=== PATIENT | male | born 1940 | race Caucasian/White ===

== ENCOUNTER 2017-01-19 10:57 | Inpatient (IN) | payer MEDICARE, SELFPAY ==
[2017-01-19] VITALS (15 sets, daily range): BP systolic 71–115; BP diastolic 43–70; PULSE 76–99; RESP 18–22; TEMP 36.4–36.6; O2SAT 89–95; BMI 35.7; BMI 33.7
--- NOTE | 2017-01-19 12:06 | EKG12_ITS ---
Test Reason : Blood Pressure : / mmHG Vent. Rate : 077 BPM Atrial Rate : 077 BPM P-R Int : 174 ms QRS Dur : 118 ms QT Int : 402 ms P-R-T Axes : 060 -37 029 degrees QTc Int : 454 ms Normal sinus rhythm Left axis deviation Low voltage QRS Abnormal ECG Confirmed by GILLIAN MART, SAVITA ([id number]), medical transcription editor KIRAN KUMARI ([id number]) on 01/22/2017 2:13:02 PM Referred By: ANEL Confirmed By:SAVITA FRENCH MD
--- NOTE | 2017-01-19 12:06 | RAD_ITS ---
STUDY: X-RAY CHEST REASON FOR EXAM: Male, 76 years old. Hypoxia. TECHNIQUE: Single AP portable view of the chest. COMPARISON: None. FINDINGS: Increased markings are seen at the lung bases worse on the right side. Follow-up is recommended. There is no demonstrated pleural abnormality. There is moderate cardiac enlargement. Normal mediastinum and kimber. Normal visualized pulmonary arteries. There is atherosclerotic calcification of the aortic arch with tortuosity. Normal visualized thoracic spine. There is degenerative osteoarthritis of the bilateral shoulders. There is no demonstrated abnormality of the visualized soft tissue structures of the upper abdomen. RAD/Chest 1 View (Portable) IMPRESSION: Increased markings are seen at both lung bases worse on the left side. Follow-up is recommended. Electronically Signed: Nabor Bolden MD at 12:39 EDT Tel [phone], Service support ,
[2017-01-19 13:15] LABS: ALB/GLOB Ratio 0.6 RATIO (0.9-2.4); AST(SGOT) 27 U/L (15-37); Alanine Aminotransfer ALT/SGPT 31 U/L (12-78); Albumin, Serum 2.8 g/dL (3.4-5.0); Alkaline Phosphatase 56 U/L (45-117); Anion Gap 12 (5-15); BUN 70 mg/dL (7-18); BUN/Creat Ratio 27.5 RATIO (10-20); Calcium,Total 10.3 mg/dL (8.5-10.1); Chloride 96 mmol/L (98-107); Creatinine, Serum 2.55 mg/dL (0.70-1.30); EST Glomerular Filtration Rate 26 mL/min (>60); Est Glom Filt Rate - Afr Amer 32 mL/min (>60); Estimated Creatinine Clearance 23.47 ml/min; Globulin 4.5 g/dL (2.3-3.5); Glucose 86 mg/dL (70-110); Potassium 4.4 mmol/L (3.5-5.1); Protein, Total 7.3 g/dL (6.4-8.2); Sodium Level 135 mmol/L (136-145)
[2017-01-19 13:20] LABS: BNP,B-Type NATRIURETIC PEPTIDE 92.3 pg/mL (0-100)
[2017-01-19 13:21] LABS: Lactic Acid 1.7 mmol/L (0.4-2.0)
[2017-01-19 13:24] LABS: Mucous, Urine 0 SEEN /hpf (<or=2+); Red Blood Cells-Urine 0 SEEN /hpf (0-5); White Blood Cells 0 SEEN /hpf (0-5)
[2017-01-19 13:26] LABS: Color, Urine Yellow (Yellow); Glucose, Dipstick Normal (Normal); Ketone-Dipstick 5 mg/dl (Negative); Leukocyte Esterase-Dipstick Negative /ul (Negative); Nitrite-Dipstick Negative (Negative); Occult Blood-Urine 10 /ul (Negative); Protein-Dipstick 30 mg/dl (Negative); Specific Gravity, Urine 1.025 (1.002-1.030); Urine Clarity Cloudy (Clear); Urine Urobilinogen Normal (Normal)
[2017-01-19 13:36] LABS: Urine Bilirubin Dipstick 1 mg/dL (Negative)
[2017-01-19 13:40] LABS: Amorphous Sediment 1+; Bacteria 1+ /hpf (None Seen); Hyaline Cast 5-10 SEEN /lpf (0-5); Squamous Epithelial Cells - UA 0-5 SEEN /hpf (0-5)
--- NOTE | 2017-01-19 14:21 | ED.VISSUMM ---
- ER Visit Summary Date of Service: 01/19/17 Chief Complaint: [Weakness and poor p.o. intake] History of Present Illness: The patient is a 76 M who presents to the emergency department with increasing confusion and generalized weakness. The patient has had generalized weakness and increasing difficulty ambulating and poor p.o. intake for a year but that this has been worse particularly in the last month. He has developed bedsores which he has been receiving wound care for. He also recently completed antibiotics for an upper respiratory infection like illness. He has had increasing shortness of breath as well per the family. He has become increasingly dyspneic even just with sitting up. He has been on home oxygen for about 2 weeks. No vomiting or diarrhea. No fevers. He denies chest pain. He denies headache. He had outpatient blood work today to recheck worsening renal function. The spoke to the patient's primary care physician and they felt that the patient may need placement to a nursing facility so he was brought here. Physical Examination: Initial blood pressure 79/52 temperature 97.7 heart rate 85 respiratory rate 22 pulse ox 94% on 2 L Tacky mucous membranes Heart regular rate and rhythm Patient has scattered rales and rhonchi but is not in respiratory distress able to speak in full sentences no retractions Abdomen soft nontender Stage II decubitus sacral ulcer No peripheral edema Test Results: EKG shows sinus rhythm at a rate of 77. Chest X ray shows increased markings at the bases but no definite infiltrate or effusion. Laboratory studies notable for BUN of 70 with a creatinine of 2.55. Urinalysis was normal. Troponin BNP and lactic all normal. CBC pending at the time of this dictation. Emergency Department Course and Treatment: Patient underwent workup for generalized weakness. He does appear to have dehydration. I do not have old labs to compare to but family has noted that his renal function has been worsening and with a BUN as high as 70 I suspect this is acute kidney injury. He was treated with IV fluids. At the time of this dictation a CBC was needed to be redrawn. However the patient does not have fever or tachycardia or signs of infectious process. I do feel he will need admitted for hydration monitoring of his renal function and eventually placement to a nursing facility. Treatment Plan: [] Disposition: Admit Impression: Acute kidney injury Generalized weakness Decubitus ulcer ED Disposition - Plan for ED Patient: Chief Complaint: General Illness Referrals: Kain Vargas MD [Primary Care Provider] -
[2017-01-19] MEDS: 0.9% Normal Saline 1,000 ML 999 ML IV ×2 (14:29→16:40)
--- NOTE | 2017-01-19 14:30 | NURSING ---
DR ALTHEA CASAS DR
[2017-01-19 14:32] LABS: Differential Indicated MANUAL DIFF; Hematocrit 33.6 % (40-54); Mean Corp Hgb Conc 32.7 g/gl (32-36); Mean Corpuscular Hgb 33.6 pg (27.0-32.0); Mean Corpuscular Volume 102.8 fL (80-94); POSITIVE COUNT YES; POSITIVE DIFFERENTIAL YES; POSITIVE MORPHOLOGY YES; Platelet Count 218 K/mm3 (150-450); RBC Distribution Width CV 17.9 % (11.6-14.6); RBC Distribution Width SD 63.9 fl (35.1-43.9); Red Blood Count 3.27 M/mm3 (4.6-6.2); White Blood Count 10.2 K/mm3 (4.4-11.0)
--- NOTE | 2017-01-19 14:41 | HP.PCM_ITS ---
Problem List (1) DENZEL (acute kidney injury) Status: Acute (2) Hypoxia Status: Acute (3) FTT (failure to thrive) in adult Status: Acute (4) Supplemental oxygen dependent Status: Chronic Comment: 2L (5) Anxiety Status: Chronic (6) Depression Status: Chronic Qualifiers: Depression Type: unspecified Qualified Code(s): F32.9 - Major depressive disorder, single episode, unspecified (7) Diabetes type 2, controlled Status: Chronic Qualifiers: Diabetes mellitus complication status: with unspecified complications Diabetes mellitus [facility] insulin use: without [facility] use Qualified Code( s): E11.8 - Type 2 diabetes mellitus with unspecified complications (8) History of pulmonary embolus (PE) Status: Chronic (9) Hyperlipidemia Status: Chronic Qualifiers: Hyperlipidemia type: unspecified Qualified Code(s): E78.5 - Hyperlipidemia , unspecified (10) Restless leg syndrome Status: Chronic (11) Rheumatoid arthritis Status: Chronic Qualifiers: Rheumatoid arthritis location: unspecified site (12) B12 deficiency Status: Chronic (13) Interstitial pulmonary fibrosis Status: Chronic (14) Chronic anemia Status: Chronic (15) RACHEL (obstructive sleep apnea) Status: Chronic (16) Hypertension Status: Chronic Qualifiers: Hypertension type: renovascular hypertension Qualified Code(s): I15.0 - Renovascular hypertension (17) Arrhythmia Status: Chronic Qualifiers: Arrhythmia type: unspecified cardiac arrhythmia Qualified Code(s): I49.9 - Cardiac arrhythmia, unspecified Comment: unsure of type, takes diltiazem History of Present Illness Date of Admission: 01/19/17 Chief Complaint: increased SOB, confusion The patient is a 76 year old M with past medical history as above who presents to the emergency room with complaints of progressive debility/weakness, increased shortness of breath, and confusion. The patient has had generalized weakness and increased difficulties with ambulation for over a year, however within the last couple of weeks has gotten significantly worse. He currently goes to the wound center under the care of Dr. Gonzalez for bilateral, nonhealing decubitus ulcers on his buttocks. His reports he has been noncompliant with some of the recommendations, such as nutritional supplementation and turning in bed to prevent worsening of his wounds. He also was placed on 2 L of oxygen supplementation 2 weeks ago by his burning supervisor, Dr. Terell Cruz, and had several tests done including a d-dimer, CTA of the chest, chest x-ray, stress test, and possible echocardiogram within the last month or 2. He was placed on ciprofloxacin and completed a 10 day course yesterday for a bronchiectasis exacerbation. He does have a history of PE/DVT approximately 2 years ago. According to OV note of Dr. Cruz that the brought in, patient had echocardiogram in 2016 that showed good heart function. He has had shortness of breath for over a year as well, however this has gotten much worse. He denies any chest discomfort, palpitations, vomiting, fevers/shaking chills, or headaches. He does note that his appetite has been very poor for over a year and that every time he tries to eat something, he gets nauseated. No emesis. He reportedly had a CT of the abdomen pelvis for weight loss and poor appetite as well. All of his testing results are currently unavailable but have been requested. He had outpatient lab work done today to check on his renal function after being taken off of metformin, however the patient's and PCP discussed possible placement to group home facility and he recommended he present to the emergency room for further evaluation. Workup in the ER was remarkable for hemoglobin of 11, Hct 33.6, normal WBC at 10.2, elevated MCV/MCH. Chemistry remarkable for sodium of 135, BUN 70, creatinine 2.55, lactate normal at 1.7, normal liver function, albumin 2.8, globulin 4.5. Urinalysis positive for protein, ketones, occult blood, and bilirubin. No leukocytes. BNP 92.3. Troponin negative ?1. Chest x-ray demonstrated increased markings at both lung bases worse on the left side. Moderate cardiac enlargement. No demonstrated pleural abnormality. The patient also has rheumatoid arthritis and sees a information systems analyst at [facility], he is currently on methotrexate and prednisone 20 mg daily. His take up operator is Dr. Rivera, notes he sees him for arrhythmia. Past Medical History Past Medical History (Chronic Problems): Chronic Problems Arrhythmia (Chronic) unsure of type, takes diltiazem B12 deficiency (Chronic) Chronic anemia (Chronic) Hypertension (Chronic) Interstitial pulmonary fibrosis (Chronic) RACHEL (obstructive sleep apnea) (Chronic) Anxiety (Chronic) COPD (chronic obstructive pulmonary disease) (Chronic) Depression (Chronic) Diabetes type 2, controlled (Chronic) History of pulmonary embolus (PE) (Chronic) Hyperlipidemia (Chronic) Restless leg syndrome (Chronic) Rheumatoid arthritis (Chronic) Stage II pressure ulcer of left buttock (Chronic) Stage II pressure ulcer of right buttock (Chronic) Supplemental oxygen dependent (Chronic) 2L Allergies aspirin Adverse Reaction (Verified 01/19/17 11:02) Swelling ibuprofen Adverse Reaction (Verified 01/19/17 11:02) Swelling NSAIDS (Non-Steroidal Anti-Inflamma Adverse Reaction (Verified 01/19/17 11:02) Unknown Home Medications: Ambulatory Orders Medication Instructions Recorded Atenolol [Tenormin] 25 mg PO DAILY 12/05/16 BusPIRone [Buspar] 15 mg PO BID 12/05/16 Calcium Carb/Magnesium Hydrox 1 tab PO DAILY 12/05/16 [Rolaids Chewable Tablet] Citalopram [Celexa] 20 mg PO DAILY 12/05/16 Diltiazem HCl [Diltiazem 24Hr ER] 120 mg PO DAILY 12/05/16 Docusate Sodium [Colace] 100 mg PO BID 12/05/16 Fluticasone 0.05% [Flonase Nasal 1 spray IH DAILY 12/05/16 [place]] Furosemide [Lasix] 40 mg PO QODAY 12/05/16 Methotrexate 17.5 mg PO PERALTA 12/05/16 Mometasone/Formoterol [Dulera 200 2 puff IH BID 12/05/16 Mcg/5 Mcg Inhaler] Pramipexole Di-HCl [Mirapex] 0.25 mg PO BID 12/05/16 PredniSONE 20 mg PO DAILY 12/05/16 Rivaroxaban [Xarelto] 20 mg PO DAILY 12/05/16 Simvastatin [Zocor] 40 mg PO QHS 12/05/16 Spironolactone [Aldactone] 50 mg PO DAILY 12/05/16 TraMADol [Ultram (G)] 50 mg PO BID PRN 12/05/16 Vit B12/Levomefolate/Vit B6/B2 1 each PO DAILY 12/05/16 [l-Methyl-Mc Tablet] Folic Acid 1 mg PO DAILY@0800 01/19/17 Furosemide [Lasix] 80 mg PO MOWEFR 01/19/17 Niacin 500 mg PO DAILY 01/19/17 Surgical History: - - none noted Psychiatric History: Depression Lives: Spouse/ Significant Other Smoking Status: Former smoker Tobacco Use: Non-smoker Alcohol: None Drugs: None - *Family History Maternal History Items: Diabetes, Heart Disease Paternal History Items: Diabetes, Heart Disease Review of Systems Constitutional: Reports: Anorexia, Weakness, Fatigue. Denies: Chills, Fever, Night Sweats, Malaise, Weight Change Eyes: Denies: Vision Change HEENT: Reports: Hard of Hearing. Denies: Difficulty Swallowing, Dysphasia, Head Aches, Nasal bleeding, Nasal Congestion, Sinus Congestion, Sore Throat Cardiovascular: Reports: Edema - chronic LLE edema from trauma, Light Headedness , Orthopnea, Paroxysmal Noc. Dyspnea. Denies: Chest Pain, Chest Tightness, Palpitations, Syncope Respiratory: Reports: Shortness of breath at rest, Shortness of breath upon exertion. Denies: Cough, Hemoptysis, Pleuritic Pain, Sputum production, Wheezing Gastrointestinal: Reports: Nausea - every time I try to eat. Denies: Abdominal Pain, Constipation, Diarrhea, Dyspepsia, Vomiting Genitourinary: Denies: Dysuria, Frequency, Hematuria, Nocturia Musculoskeletal: Reports: - - Chronic low back pain Skin: Reports: Wounds - Bilateral decubitus ulcers to buttocks, - - skin tear LFA/elbow area Neurological: Reports: Confusion - last night/this a.m.. Denies: Balance problems, Change in Speech, Focal weakness, Numbness, Tingling, Tremor, Seizures Psychiatric: Reports: Depression. Denies: Anxiety, Suicidal Ideations Endocrine: Denies: Change in Body Habitus, Polydipsia, Polyuria Hematologic/ Lymphatic: Reports: Easy Bruising, Easy Bleeding, Hx of blood clot - on Xarelto for PE/DVT. Denies: Adenopathy, Anemia VTE Information - Inpt Only VTE Present on Admission: Yes VTE Mechan Device Prophylaxis: Knee High DINH Hose VTE Pharm Prophylaxis ordered?: No Reason prophylaxis not ordered:: Treatment Not Indicated - on Xarelto for DVT/PE Patient Problems: Active and Suspected Problems DENZEL (acute kidney injury) (Acute) FTT (failure to thrive) in adult (Acute) Hypoxia (Acute) Subjective: Patient lying in bed, no specific complaints. Reports he does get short of breath if he is lying flat. Denies any chest pain or palpitations. No dizziness, headache, pain. Objective: Clinical Impression(s) from Imaging Studies Chest X-Ray 01/19/17 12:06 IMPRESSION: Increased markings are seen at both lung bases worse on the left side. Follow-up is recommended. Electronically Signed: Nabor Bolden MD at 12:39 EDT Tel [phone], Service support , - Physical Exam General: Alert, Oriented x3, Cooperative, No apparent distress HEENT: Atraumatic, PERRLA, Normocephalic Oral: No Gingival or Mucosal Lesions/ Ulcerations, Dry Mucosa Neck: Supple, No JVD, No Nodes, Trachea Midline, Thyroid Normal Size and Texture , Carotid Bruits, Bilateral - mild Lungs: Diminished, Rales - Throughout, Rhonchi - Scattered throughout, Wheezes - Expiratory wheezes throughout, - - No accessory muscle use, no conversational dyspnea, no tachypnea. Cardiovascular: Normal S1, Normal S2, PMI Normal, Irregular Rate, No rub noted, No Gallop, - - distant heart sounds Abdomen: Soft, Non Tender, No Hepato-splenomegaly, Hyperactive Bowel Sounds, Obese Extremities: No clubbing, No cyanosis, Capillary Refill Less than 3 Seconds, Diminished Peripheral Pulses, Edema - LLE 1+, - - deformed hands/digits- h/o RA Skin: Ulcer/ Wound - bilat stg II decubitus ulcers to buttocks Musculoskeletal: No Tenderness to Palpation of Joints or Extremities Lymphatic: No Cervical, Supraclavicular, or Inguinal Adenopathy Neurological: Cranial nerves II-XII grossly intact, Neuro grossly intact, Motor Exam 5/5 strength throughout Psych/Mental Status: Alert and oriented to time, place, person, mood and affect Vital Signs Temp Pulse Resp BP Pulse Ox 97.7 F 99 20 93/55 92 01/19/17 10:58 01/19/17 12:06 01/19/17 12:06 01/19/17 14:25 01/19/17 14:25 Oxygen Flow Rate 3 Oxygen Delivery Method Nasal Cannula Weight: 106.594 kg Body Mass Index (BMI) 35.7 Laboratory Tests Past 24 Hrs 01/19/17 01/19/17 01/19/17 12:46 12:46 12:46 WBC RBC Hgb Hct MCV MCH MCHC RDW RDW Differential Plt Count MPV Neut % (Auto) Absolute Neuts (auto) Total Counted Sodium 135 L Potassium 4.4 Chloride 96 L Carbon Dioxide 27.0 Anion Gap 12 BUN 70 H Creatinine 2.55 H Estim Creat Clear Calc 23.47 Est GFR (MDRD) Af Amer 32 L Est GFR (MDRD) Non-Af 26 L BUN/Creatinine Ratio 27.5 H Glucose 86 Lactic Acid 1.7 Calcium 10.3 H Total Bilirubin 0.70 AST 27 ALT 31 Alkaline Phosphatase 56 Troponin I < 0.02 B-Natriuretic Peptide 92.3 Total Protein 7.3 Albumin 2.8 L Globulin 4.5 H Albumin/Globulin Ratio 0.6 L Urine Color Urine Clarity Urine pH Ur Specific [place] Urine Protein Urine Glucose (UA) Urine Ketones Urine Occult Blood Urine Nitrite Urine Bilirubin Urine Urobilinogen Ur Leukocyte Esterase Urine RBC Urine WBC Ur Squamous Epith Cells Amorphous Sediment Urine Bacteria Hyaline Casts Urine Mucus 01/19/17 01/19/17 13:15 14:23 WBC 10.2 RBC 3.27 L Hgb 11.0 L Hct 33.6 L MCV 102.8 H MCH 33.6 H MCHC 32.7 RDW 17.9 H RDW Differential 63.9 H Plt Count 218 MPV 10.0 Neut % (Auto) Not Reportable Absolute Neuts (auto) Not Reportable Total Counted Pending Sodium Potassium Chloride Carbon Dioxide Anion Gap BUN Creatinine Estim Creat Clear Calc Est GFR (MDRD) Af Amer Est GFR (MDRD) Non-Af BUN/Creatinine Ratio Glucose Lactic Acid Calcium Total Bilirubin AST ALT Alkaline Phosphatase Troponin I B-Natriuretic Peptide Total Protein Albumin Globulin Albumin/Globulin Ratio Urine Color Yellow Urine Clarity Cloudy Urine pH 5.0 Ur Specific [place] 1.025 Urine Protein 30 H Urine Glucose (UA) Normal Urine Ketones 5 H Urine Occult Blood 10 H Urine Nitrite Negative Urine Bilirubin 1 H Urine Urobilinogen Normal Ur Leukocyte Esterase Negative Urine RBC 0 SEEN Urine WBC 0 SEEN Ur Squamous Epith Cells 0-5 SEEN Amorphous Sediment 1+ Urine Bacteria 1+ Hyaline Casts 5-10 SEEN Urine Mucus 0 SEEN Assessment/Plan Active and Suspected Problems DENZEL (acute kidney injury) (Acute) FTT (failure to thrive) in adult (Acute) Hypoxia (Acute) 1. DENZEL Patient taken off metformin approximately 1 month ago in preparation for testing. He has not had this restarted secondary to worsening renal function, which is being monitored by [facility]. BUN is 70 and creatinine is 2.55. Will request records @[facility], does not have a call centre supervisor. Discontinue nephrotoxic medications, including Xarelto. Start subcq heparin. Consult Dr. Natarajan. 2. Hypoxia/increased shortness of breath Patient was recently placed on 2 L per nasal cannula by his PCP, Dr. Vargas. Family states he does not like to wear it, takes it off and becomes confused. Patient does not feel that he needs it. Patient does not have a history of COPD as originally thought, does have chronic bronchiectasis and was recently treated for an exacerbation with ciprofloxacin. According to records that his brought in, patient had echocardiogram in 2016 that showed good heart function. Has been having issues with lower extremity edema. Patient had recent d-dimer, BNP, CXR at [facility]. thinks he had a recent echocardiogram, will obtain records. Also notes he had a recent bronchiectasis exacerbation and was put on ciprofloxacin 500 mg twice daily ?10 days. Plan: Chest physiotherapy, oxygen per protocol-wean to keep saturations greater than 90%, obtain records at [facility]-further recommendations for additional imaging/ tests can be made once we have those records. Patient and family deny a h/o CHF. He does have some minimal LE edema and rales. May need repeat echocardiogram, has persistent/worsening hypoxia and some mild LE edema. Repeat chest x-ray in a.m. 3. Progressive debility/FTT Patient currently receiving outpatient physical therapy at [facility] in [place], reportedly refuses care frequently per and daughter. Continue PT/OT. Patient will likely require SNF placement given his profound weakness and progressive decline with ambulation. His is unable to get him in and out of the house at times, and pt has been increasingly using a wheelchair. 4. Hypotension Patient did respond to a liter NS bolus in the ER, however now has persistent hypotension. His blood pressure medications have been held. He is asymptomatic. His oxygen requirements did go up to 4L/nc and saturations are now 89-92%. Dr. Arredondo has advised stress dose of steroids and 500 cc NS bolus, if BP does not improve, pt may need to go to ICU. If does improve, can go to PCU per Dr. Arredondo. 5. Bilateral decubitus ulcers, stage II to buttocks Patient goes to wound care center under the care of Dr. Gonzalez. He has been noncompliant with the recommended therapy. He does go to his appointments but will not follow the proper nutrition and activity recommendations, such as keeping pressure of his ulcers. Consult wound nurse, continue Duoderm. Nutrition c/s. 6. Diabetes mellitus Recently taken off metformin, states they started last week checking his blood sugars and have been running in the low 100s. Poor appetite for over a year, worse lately. Monitor AC/HS blood sugars, SS insulin coverage. 7. Hypertension Holding all meds secondary to current hypotension. 8. Hyperlipidemia Continue statin. 9. Rheumatoid arthritis Hold methotrexate. Continue prednisone. Gun Stock Checker at [facility] main [place]. 10. h/o Bronchiectasis Lung sounds are diminished with rales, rhonchi, and wheezes. Patient denies cough or sputum production. He did finish up ciprofloxacin yesterday for an exacerbation. This is possible etiology of hypoxia, however is worsening and oxygen supplementation requirements have increased. Aggressive chest physiotherapy. PRN albuterol and scheduled Duoneb aerosols. 11. History of PE/DVT Currently on Xarelto, will d/c for now secondary to DENZEL. SC heparin. 12. Depression/anxiety Uncontrolled. Continue Celexa for now. Holding buspar. 13. Malnutrition Patient has been advised to supplement his diet with Glucerna shakes. states that she has bought several kinds of shakes, protein bars, etc. and the patient refuses to eat/drink any of them. His dietary intake is very poor. He has nonhealing wounds. Consult Neck Band Setter. 14. Restless leg syndrome 15. Arrhythmia Family and patient are unsure type of arrhythmia. Patient is on diltiazem. This is being held at this time for hypertension. Monitor on telemetry, stepdown,, vital signs. Dragon Dictation
[2017-01-19 15:13] LABS: Eosinophil 4 % (0-5); Lymphocyte 5 % (19-41); Metamyelocyte 1 % (0-1); Monocyte 2 % (0-10); Myelocyte 3 (0-0); Neutrophil-Segmented 84 % (47-70); Platelet Estimate ADEQUATE (ADEQ); Promyelocyte 1 (0-0); Red Cell Morphology NORM C+C NORMAL (NORM C&C); Total Cells Counted 100 (MANUAL DIFF)
[2017-01-19 15:14] LABS: Absolute Lymphocyte Count 0.51 X10^3/ul (0.83-4.51); Absolute Neutrophil Count 8.6 X10^3/uL (2.0-7.7)
--- NOTE | 2017-01-19 15:59 | NURSING ---
MED SURG ARF, HYPOXIA, FAILURE TO THRIVE ALTHEA
--- NOTE | 2017-01-19 16:28 | NURSING ---
sarina sanchez paged for hypotension. pt alert and awake with no change except for low bp now. 1 liter iv insusion complete. manual bp 79/45 now. spo2 88% on 3l. dr. murphy aware and new order for 2nd liter.
--- NOTE | 2017-01-19 16:51 | NURSING ---
VICENTE MEANS, IN ROOM
[2017-01-19] MEDS: Hydrocortisone Sod Succinate 100 MG/2 ML Vial IV (18:14)
[2017-01-19 18:26] LABS: Bedside Glucose 102 mg/dL (70-110)
[2017-01-19] MEDS: Ipratropium/Albuterol Sulfate 3 ML AMPUL.NEB INHALATION ×2 (19:32→22:44)
[2017-01-19] MEDS: oxyCODONE 5 MG Tablet PO (20:43)
[2017-01-19] MEDS: Heparin Injection 5,000 UNITS/ML Syringe 5000 UNITS SC (20:54)
[2017-01-19] MEDS: Atorvastatin Calcium 20 MG Tablet PO (20:54)
[2017-01-19] MEDS: Docusate Sodium 100 MG Capsule PO (20:54)
[2017-01-19] MEDS: Pramipexole Di-HCl 0.25 MG Tablet PO (20:54)
[2017-01-19] MEDS: Glucerna Shake 120 ML LIQUID PO (20:54)
[2017-01-19 20:56] LABS: Bedside Glucose 194 mg/dL (70-110)
[2017-01-20] VITALS (20 sets, daily range): BP systolic 92–122; BP diastolic 51–61; PULSE 77–109; RESP 16–40; TEMP 36.4–37.3; O2SAT 91–95
[2017-01-20 03:22] LABS: Anion Gap 7 (5-15); BUN 59 mg/dL (7-18); BUN/Creat Ratio 30.6 RATIO (10-20); Chloride 104 mmol/L (98-107); Creatinine, Serum 1.93 mg/dL (0.70-1.30); EST Glomerular Filtration Rate 36 mL/min (>60); Est Glom Filt Rate - Afr Amer 44 mL/min (>60); Estimated Creatinine Clearance 31.01 ml/min; Glucose 130 mg/dL (70-110); Sodium Level 137 mmol/L (136-145)
[2017-01-20] MEDS: Ipratropium/Albuterol Sulfate 3 ML AMPUL.NEB INHALATION ×6 (03:35→23:18)
[2017-01-20 03:46] LABS: Differential Indicated MANUAL DIFF; Hematocrit 28.4 % (40-54); Hemoglobin 9.1 g/dl (13.0-16.5); Mean Corpuscular Hgb 33.1 pg (27.0-32.0); Mean Corpuscular Volume 103.3 fL (80-94); Mean Platelet Vol. 9.6 fl (6.2-12.0); POSITIVE COUNT YES; POSITIVE DIFFERENTIAL YES; POSITIVE MORPHOLOGY YES; Platelet Count 165 K/mm3 (150-450); RBC Distribution Width CV 18.4 % (11.6-14.6); RBC Distribution Width SD 67.6 fl (35.1-43.9); Red Blood Count 2.75 M/mm3 (4.6-6.2)
[2017-01-20 04:49] LABS: Hypersegmented Neutrophils RARE; Lymphocyte 1 % (19-41); Monocyte 1 % (0-10); Myelocyte 1 (0-0); Neutrophil-Band 1 % (0-5); Neutrophil-Segmented 96 % (47-70); Platelet Estimate ADEQUATE (ADEQ); Red Cell Morphology NORM C+C NORMAL (NORM C&C); Total Cells Counted 100 (MANUAL DIFF)
[2017-01-20 04:50] LABS: Absolute Lymphocyte Count 0.07 X10^3/ul (0.83-4.51); Absolute Neutrophil Count 6.8 X10^3/uL (2.0-7.7); Lymphocyte # 0.07 X10^3/ul (4.0); Neutrophil # 6.79 X10^3/uL (2.7-7.7)
[2017-01-20 04:51] LABS: Anisocytosis 2+
--- NOTE | 2017-01-20 05:55 | RAD_ITS ---
STUDY: X-RAY CHEST REASON FOR EXAM: Male, 76 years old. History of bronchiectasis. Recent exacerbation. TECHNIQUE: PA and lateral views of the chest. COMPARISON: January 19, 2017. FINDINGS: The lungs are hypoexpanded. There is atelectatic changes at both lung bases. There is no demonstrated pleural abnormality. Normal size heart. Normal mediastinum and kimber. Normal visualized pulmonary arteries. There is atherosclerotic calcification of the aortic arch with tortuosity. There are diffuse degenerative changes of the visualized thoracic spine. There is degenerative osteoarthritis of the bilateral shoulders. There is no demonstrated abnormality of the visualized soft tissue structures of the upper abdomen. RAD/Chest PA and Lateral IMPRESSION: Bibasilar atelectasis. Electronically Signed: Sumeet Christianson DO at 11:58 EDT Tel [phone], Service support ,
--- NOTE | 2017-01-20 05:55 | US_ITS ---
STUDY: RENAL ULTRASOUND - COMPLETE REASON FOR EXAM: Male, 76 years old. Acute renal failure. TECHNIQUE: Ultrasound evaluation of the kidneys was performed with real-time and static casey-scale imaging. COMPARISON: None. FINDINGS: RIGHT KIDNEY: Normal location of the right kidney, which is normal in size. The right kidney measures 10.1 cm. There is a normal cortex of the right kidney. The renal cortex measures 1.4 cm. There is a 1.6 x 1.1 x 1.5 cm cyst in the mid cortex. There is poor differentiation of the cortex from the central sinus fat is decreased in attenuation. There are no right renal calculi. There is no right hydronephrosis. DISTAL RIGHT URETER: There is non-visualization of the distal right ureter. There is no demonstrated right ureterovesical junction calculus. There is no demonstrated right ureteral jet. LEFT KIDNEY: Normal location of the left kidney, which is normal in size. The left kidney measures 10.1 cm. There is a normal cortex of the left kidney. The renal cortex measures 0.9 cm. There is a 1 x 1.4 x 0.7 cm cortical cysts. There is decreased echogenicity central sinus fat. There are no left renal calculi. There is no left hydronephrosis. DISTAL LEFT URETER: There is non-visualization of the distal left ureter. There is no demonstrated left ureterovesical junction calculus. There is no demonstrated left ureteral jet. BLADDER: The distended urinary bladder has a volume of 17 ml. There is a normal wall thickness of the distended urinary bladder. There is no demonstrated mass within the urinary bladder. There are no demonstrated bladder calculi. US/Kidney and Bladder IMPRESSION: 1. Increased echogenicity with central sinus fat. 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 2. Bilateral renal cysts. Electronically Signed: Sumeet Christiansno DO at 11:57 EDT Tel [phone], Service support ,
[2017-01-20] MEDS: Heparin Injection 5,000 UNITS/ML Syringe 5000 UNITS SC ×3 (06:40→21:07)
[2017-01-20 06:51] LABS: Bedside Glucose 106 mg/dL (70-110)
--- NOTE | 2017-01-20 10:23 | CASEMGMT ---
RN CM attempted to complete a face to face visit with Pt however Pt was sound asleep. Gaby Cain RN, BSN, CM
--- NOTE | 2017-01-20 10:51 | NURSING ---
Patient refused all AM meds. Discussed importance and reasons for medication, patient continued to refuse.
--- NOTE | 2017-01-20 11:00 | CASEMGMT ---
Addendum entered by Theresa Perla 01/20/17 16:02: NAHID Pickens informing SW that he has spoke to pt and family about options and family would like to pursue hospice at this time. SW met with and dgt in pt room. Pt sleeping throughout the conversation. confirms she would like to meet with hospice. SW presents options of [facility] in [place] and [facility] in [place]. Also discussed with family [facility] placement with hospice care and that [facility] will be private pay and hospice services covered by insurance. SW provided information that [facility] does have an inpatient unit and that [place] does not. SW explained that hospice will assess pt to see if pt he is appropriate for inpatient unit. and dgt would like referral to be made to [facility]. Emotional support provided. Referral made to [facility]. They will meet with family tomorrow and will call family to set up appt. Family and nursing made aware. SW will continue to follow for d/c planning and emotional support. SOO Johnson Original Note: Met with pt and daughter and introduced role of SW. Pt lives at home with his and she is primary caregiver. states she is no longer able to provide care for pt and will need [facility] placement. SW provided list of SNFs contracted with pt insurance. and dgt will discuss and notify SW of choice. Emotional support provided to pt as she is having difficulty with decision of placement. SW will follow up fo SNF placement. SOO Johnson
[2017-01-20 11:30] LABS: Urine Sodium 21 mmol/L (Not Establ.)
[2017-01-20 11:36] LABS: Bedside Glucose 101 mg/dL (70-110)
[2017-01-20 12:37] LABS: Pathologist Review Reviewed
[2017-01-20 12:39] LABS: Pathologist Review Reviewed
--- NOTE | 2017-01-20 14:49 | CASEMGMT ---
Addendum entered by Gaby Cain 01/20/17 15:44: CHARLIE RICE notified by [facility] that they do not cover [facility]. Gaby Cain RN, BSN, CM Original Note: CHARLIE RICE left a vm for [facility] to call back if they cover [facility]. KRYSTAL called [phone]. Gaby Cain RN, BSN, CM
--- NOTE | 2017-01-20 15:00 | PCM.CONS.R ---
Consultation - Renal 01/20/17 PCP/ Referring MD: Requesting physician: Pasha Arredondo MD Primary care physician: Kain Vargas MD - History of Present Illness History of Present Illness: 76-year-old admitted for failure to thrive at home, worsening renal function, weakness, and hypoxemia. Patient recently diagnosed of bronchiectasis followed by pulmonary Dr. Cruz. He has a chronic cough productive with whitish phlegm. Denied hemoptysis, fever but has chills. Extensive [facility] records reviewed. Baseline creatinine appears to be 1.03 in Jul 2016 progressed to 1.39 in August 2016, 1.27 on September 24 then 1.86 on 12/09/16 to 2.0 on 12/30/16. Creatinine on admit was elevated at 2.55 improved to 1.9 today after his diuretics were held. He is on Lasix 40 mg alternating with 80 mg for the past week for shortness of breath and edema. He has been on spironolactone for several months. He received iv fluids for hypotension. He is on steroid therapy chronically for RA with MTX every Thursday managed by Dr. East at [facility]. BNP 92 on admit. He has a history of systolic CHF. Echo from 10/2015 showed LVEF of 53% with moderate septal LVH. He had normal RV function. He had MRA, carotid studies, stress test all within last month was unremarkable. His family ( and daughter at bedside ) states he has not been eating or drinking at home. There is no history of aspirating. He has trouble with upset stomach with his medications taken on an empty stomach. He has a history of P.E. on Xarelto at home and chronic leg edema on diuretics. - Allergies Allergies: Allergies aspirin Adverse Reaction (Verified 01/19/17 11:02) Swelling ibuprofen Adverse Reaction (Verified 01/19/17 11:02) Swelling NSAIDS (Non-Steroidal Anti-Inflamma Adverse Reaction (Verified 01/19/17 11:02) Unknown - Current Medications Current Medications: Current Medications Acetaminophen (Tylenol) 650 mg PO Q6H PRN PRN PRN Reason: Mild Pain (scale 0-3)/T>100.7 Albuterol Sulfate (Ventolin Aerosols) 2.5 mg INHALATION Q2H PRN PRN PRN Reason: SOB &/OR WHEEZING Albuterol/Ipratropium (Duoneb) 3 ml INHALATION Q4H.RT [facility] Last Admin: 01/20/17 11:21 Dose: 3 ml Atorvastatin Calcium (Lipitor) 20 mg PO QHS [facility] Last Admin: 01/19/17 20:54 Dose: 20 mg Citalopram Hydrobromide (Celexa) 20 mg PO DAILY [facility] Last Admin: 01/20/17 10:51 Dose: Not Given Dextrose (D50w Syringe) 0 gm IV X1 PRN; Protocol PRN Reason: Hypoglycemia Docusate Sodium (Colace) 100 mg PO BID [facility] Last Admin: 01/20/17 10:50 Dose: Not Given Glucagon () 1 mg IM .X1 PRN PRN Reason: Hypoglycemia Heparin Sodium (Porcine) () 5,000 units SC Q8 [facility] Last Admin: 01/20/17 14:42 Dose: 5,000 units Insulin Aspart (Novolog Flexpen (Bkc)) 0 units SC 0800,1200,1700,2200 [place] PRN Reason: Protocol Last Admin: 01/20/17 11:29 Dose: Not Given Ondansetron HCl (Zofran) 4 mg IV Q8H PRN PRN PRN Reason: Nausea Oxycodone HCl (Oxyir) 5 mg PO Q4H PRN PRN PRN Reason: Moderate Pain (pain scale 4-5) Last Admin: 01/19/17 20:43 Dose: 5 mg Pramipexole Dihydrochloride (Mirapex) 0.25 mg PO BID [facility] Last Admin: 01/20/17 10:50 Dose: Not Given Prednisone (Prednisone) 20 mg PO DAILY@0800 [facility] Last Admin: 01/20/17 10:51 Dose: Not Given Sodium Chloride () 5 - 30 ml IV UD PRN PRN Reason: SALINE FLUSH Spironolactone (Aldactone) 50 mg PO DAILY [facility] Last Admin: 01/20/17 10:41 Dose: Not Given - Past Medical History Past Medical History (Chronic Problems): Chronic Problems Arrhythmia (Chronic) unsure of type, takes diltiazem B12 deficiency (Chronic) Chronic anemia (Chronic) Hypertension (Chronic) Interstitial pulmonary fibrosis (Chronic) RCAHEL (obstructive sleep apnea) (Chronic) Anxiety (Chronic) COPD (chronic obstructive pulmonary disease) (Chronic) Depression (Chronic) Diabetes type 2, controlled (Chronic) History of pulmonary embolus (PE) (Chronic) Hyperlipidemia (Chronic) Restless leg syndrome (Chronic) Rheumatoid arthritis (Chronic) 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 Denies: Fever HEENT: Reports: Difficulty Hearing, - - Thirst. Denies: Sinus Drainage Cardiovascular: Reports: Edema. Denies: Chest Pain Respiratory: Reports: Cough, - - Severe bronchiectasis. Denies: Hemoptysis Gastrointestinal: Reports: - - Anorexia, epigastric pain pills. Denies: Abdominal Pain, Constipation, Diarrhea, Nausea, Vomiting Genitourinary: Reports: Incontinence. Denies: Dysuria, Hematuria Musculoskeletal: Reports: Joint Pain, - - 2 right arthritis on prednisone and methotrexate, - - Deformities Skin: Denies: Rash Neurological: Reports: Confusion, -. Denies: Tremor - Voice weakness, Seizures Psychiatric: Reports: Depression Hematologic/ Lymphatic: Reports: Anemia, Hx of blood clot - PE Patient Problems: Active and Suspected Problems DENZEL (acute kidney injury) (Acute) FTT (failure to thrive) in adult (Acute) Hypoxia (Acute) - Physical Exam General: Confused - Oriented to time and family members disoriented to place, - - Arousable but drifts back to sleep. Has sleep apnea snoring moaning or jerking movements while sleeping HEENT: PERRLA, EOMI Oral: Dry Mucosa Neck: Supple, No JVD Lungs: Rales - Right middle lobe, Wheezes Cardiovascular: Regular rate, Murmur, No rub noted Abdomen: Bowel Sounds Present - Mental lobe, Soft, Non Tender, Non-Distended, Obese Extremities: No edema, Peripheral Pulses Normal Skin: No rashes Musculoskeletal: Muscle Wasting, - - Generalized weakness, rheumatoid changes in his digits Neurological: - Psych/Mental Status: - - Somnolent Vital Signs Temp Pulse Resp BP Pulse Ox 98.1 F 79 20 108/61 94 01/20/17 14:20 01/20/17 14:20 01/20/17 14:20 01/20/17 14:20 01/20/17 14:20 Oxygen Flow Rate 2 Oxygen Delivery Method Nasal Cannula Weight: 100 kg Body Mass Index (BMI) 33.7 Intake and Output for Last 24 Hours 01/18/17 01/19/17 01/20/17 23:59 23:59 23:59 Intake Total 1385 293 Output Total 400 Balance 1385 -107 Laboratory Tests Past 24 Hrs 01/19/17 01/20/17 01/20/17 22:10 02:35 02:35 WBC 7.0 RBC 2.75 L Hgb 9.1 L Hct 28.4 L MCV 103.3 H MCH 33.1 H MCHC 32.0 RDW 18.4 H RDW Differential 67.6 H Plt Count 165 MPV 9.6 Neut % (Auto) Not Reportable Absolute Neuts (auto) 6.8 Absolute Lymphs (auto) 0.07 L Total Counted 100 Neutrophils % (Manual) 96 H Band Neutrophils % 1 Lymphocytes % (Manual) 1 L Monocytes % (Manual) 1 Myelocytes % 1 H Diff Path Review Reviewed Hypersegmented Neuts RARE H Platelet Estimate ADEQUATE RBC Morphology NORM C+C Anisocytosis 2+ Sodium 137 Potassium 4.0 Chloride 104 Carbon Dioxide 26.0 Anion Gap 7 BUN 59 H Creatinine 1.93 H Estim Creat Clear Calc 31.01 Est GFR (MDRD) Af Amer 44 L Est GFR (MDRD) Non-Af 36 L BUN/Creatinine Ratio 30.6 H Glucose 130 H Calcium 9.0 Troponin I < 0.02 U Random Total Protein Ur Random Sodium Urine Creatinine 01/20/17 01/20/17 01/20/17 02:35 06:20 11:15 WBC RBC Hgb Hct MCV MCH MCHC RDW RDW Differential Plt Count MPV Neut % (Auto) Absolute Neuts (auto) Absolute Lymphs (auto) Total Counted Neutrophils % (Manual) Band Neutrophils % Lymphocytes % (Manual) Monocytes % (Manual) Myelocytes % Diff Path Review Hypersegmented Neuts Platelet Estimate RBC Morphology Anisocytosis Sodium Potassium Chloride Carbon Dioxide Anion Gap BUN Creatinine Estim Creat Clear Calc Est GFR (MDRD) Af Amer Est GFR (MDRD) Non-Af BUN/Creatinine Ratio Glucose Calcium Troponin I < 0.02 < 0.02 U Random Total Protein Ur Random Sodium 21 Urine Creatinine 01/20/17 01/20/1717 11:15 11:15 12:35 WBC RBC Hgb Hct MCV MCH MCHC RDW RDW Differential Plt Count MPV Neut % (Auto) Absolute Neuts (auto) Absolute Lymphs (auto) Total Counted Neutrophils % (Manual) Band Neutrophils % Lymphocytes % (Manual) Monocytes % (Manual) Myelocytes % Diff Path Review Hypersegmented Neuts Platelet Estimate RBC Morphology Anisocytosis Sodium Potassium Chloride Carbon Dioxide Anion Gap BUN Creatinine Estim Creat Clear Calc Est GFR (MDRD) Af Amer Est GFR (MDRD) Non-Af BUN/Creatinine Ratio Glucose Calcium Troponin I < 0.02 U Random Total Protein 18.0 H Ur Random Sodium Urine Creatinine 127.00 POC Glucose 01/20/17 01/20/17 01/19/17 11:01 06:45 20:46 POC Glucose 101 106 194 H 01/19/17 18:10 POC Glucose 102 Clinical Impression(s) from Imaging Studies Chest X-Ray 01/20/17 05:55 IMPRESSION: Bibasilar atelectasis. Electronically Signed: Sumeet Christianson DO at 11:58 EDT Tel [phone], Service support , Renal Ultrasound 01/20/17 05:55 IMPRESSION: 1. Increased echogenicity with central sinus fat. 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 2. Bilateral renal cysts. Electronically Signed: Sumeet Christianson DO at 11:57 EDT Tel [phone], Service support , Assessment/Plan Active and Suspected Problems DENZEL (acute kidney injury) (Acute) FTT (failure to thrive) in adult (Acute) Hypoxia (Acute) 1. DENZEL clearly due to prerenal azotemia, dehydration, diuretic therapy. No NSAID use history. FENA <1%. Baseline creatinine 1.03 in July 2016, 1.27 in September 2016. Creatinine was up to 1.86 December 09, 2.04 December 30, 2.45 January 19 from [facility]. Creatinine was 2.55 on admission improved to 1.9 after his diuretics were held. Received IV fluids and stress dose steroids for hypotension. He appears dry on exam. We will gently hydrate with normal saline at 50 cc/hr. continue to hold diuretics. We will see if his altered mental status and his appetite improves as his renal function improves. Discussed with family at bedside. 2. History of rheumatoid arthritis on chronic steroid therapy. Would hold methotrexate until renal function back to baseline creatinine 1.0 3. History of bronchiectasis followed by pulmonary at [facility] 4. History of pulmonary embolus on Xarelto at home. Currently on heparin subcu due to DENZEL. 5. Hypotension resolved
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
--- NOTE | 2017-01-20 15:14 | CON.PCM_ITS ---
Consultation - Renal 01/20/17 PCP/ Referring MD: Requesting physician: Pasha Arredondo MD Primary care physician: Kain Vargas MD - History of Present Illness History of Present Illness: 76-year-old admitted for failure to thrive at home, worsening renal function, weakness, and hypoxemia. Patient recently diagnosed of bronchiectasis followed by pulmonary Dr. Cruz. He has a chronic cough productive with whitish phlegm. Denied hemoptysis, fever but has chills. Extensive [facility] records reviewed. Baseline creatinine appears to be 1.03 in Jul 2016 progressed to 1.39 in August 2016, 1.27 on September 24 then 1.86 on 12/09/16 to 2.0 on 12/30/16. Creatinine on admit was elevated at 2.55 improved to 1.9 today after his diuretics were held. He is on Lasix 40 mg alternating with 80 mg for the past week for shortness of breath and edema. He has been on spironolactone for several months. He received iv fluids for hypotension. He is on steroid therapy chronically for RA with MTX every Thursday managed by Dr. East at [facility]. BNP 92 on admit. He has a history of systolic CHF. Echo from 2015 showed LVEF of 53% with moderate septal LVH. He had normal RV function. He had MRA, carotid studies, stress test all within last month was unremarkable. His family ( and daughter at bedside ) states he has not been eating or drinking at home. There is no history of aspirating. He has trouble with upset stomach with his medications taken on an empty stomach. He has a history of P.E. on Xarelto at home and chronic leg edema on diuretics. - Allergies Allergies: Allergies aspirin Adverse Reaction (Verified 01/19/17 11:02) Swelling ibuprofen Adverse Reaction (Verified 01/19/17 11:02) Swelling NSAIDS (Non-Steroidal Anti-Inflamma Adverse Reaction (Verified 01/19/17 11:02) Unknown - Current Medications Current Medications: Current Medications Acetaminophen (Tylenol) 650 mg PO Q6H PRN PRN PRN Reason: Mild Pain (scale 0-3)/T>100.7 Albuterol Sulfate (Ventolin Aerosols) 2.5 mg INHALATION Q2H PRN PRN PRN Reason: SOB &/OR WHEEZING Albuterol/Ipratropium (Duoneb) 3 ml INHALATION Q4H.RT [facility] Last Admin: 01/20/17 11:21 Dose: 3 ml Atorvastatin Calcium (Lipitor) 20 mg PO QHS [facility] Last Admin: 01/19/17 20:54 Dose: 20 mg Citalopram Hydrobromide (Celexa) 20 mg PO DAILY [facility] Last Admin: 01/20/17 10:51 Dose: Not Given Dextrose (D50w Syringe) 0 gm IV X1 PRN; Protocol PRN Reason: Hypoglycemia Docusate Sodium (Colace) 100 mg PO BID [facility] Last Admin: 01/20/17 10:50 Dose: Not Given Glucagon () 1 mg IM .X1 PRN PRN Reason: Hypoglycemia Heparin Sodium (Porcine) () 5,000 units SC Q8 [facility] Last Admin: 01/20/17 14:42 Dose: 5,000 units Insulin Aspart (Novolog Flexpen (Bkc)) 0 units SC 0800,1200,1700,2200 AL PRN Reason: Protocol Last Admin: 01/20/17 11:29 Dose: Not Given Ondansetron HCl (Zofran) 4 mg IV Q8H PRN PRN PRN Reason: Nausea Oxycodone HCl (Oxyir) 5 mg PO Q4H PRN PRN PRN Reason: Moderate Pain (pain scale 4-5) Last Admin: 01/19/17 20:43 Dose: 5 mg Pramipexole Dihydrochloride (Mirapex) 0.25 mg PO BID [facility] Last Admin: 01/20/17 10:50 Dose: Not Given Prednisone (Prednisone) 20 mg PO DAILY@0800 [facility] Last Admin: 01/20/17 10:51 Dose: Not Given Sodium Chloride () 5 - 30 ml IV UD PRN PRN Reason: SALINE FLUSH Spironolactone (Aldactone) 50 mg PO DAILY [facility] Last Admin: 01/20/17 10:41 Dose: Not Given - Past Medical History Past Medical History (Chronic Problems): Chronic Problems Arrhythmia (Chronic) unsure of type, takes diltiazem B12 deficiency (Chronic) Chronic anemia (Chronic) Hypertension (Chronic) Interstitial pulmonary fibrosis (Chronic) RACHEL (obstructive sleep apnea) (Chronic) Anxiety (Chronic) COPD (chronic obstructive pulmonary disease) (Chronic) Depression (Chronic) Diabetes type 2, controlled (Chronic) History of pulmonary embolus (PE) (Chronic) Hyperlipidemia (Chronic) Restless leg syndrome (Chronic) Rheumatoid arthritis (Chronic) 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 Denies: Fever HEENT: Reports: Difficulty Hearing, - - Thirst. Denies: Sinus Drainage Cardiovascular: Reports: Edema. Denies: Chest Pain Respiratory: Reports: Cough, - - Severe bronchiectasis. Denies: Hemoptysis Gastrointestinal: Reports: - - Anorexia, epigastric pain pills. Denies: Abdominal Pain, Constipation, Diarrhea, Nausea, Vomiting Genitourinary: Reports: Incontinence. Denies: Dysuria, Hematuria Musculoskeletal: Reports: Joint Pain, - - 2 right arthritis on prednisone and methotrexate, - - Deformities Skin: Denies: Rash Neurological: Reports: Confusion, -. Denies: Tremor - Voice weakness, Seizures Psychiatric: Reports: Depression Hematologic/ Lymphatic: Reports: Anemia, Hx of blood clot - PE Patient Problems: Active and Suspected Problems DENZEL (acute kidney injury) (Acute) FTT (failure to thrive) in adult (Acute) Hypoxia (Acute) - Physical Exam General: Confused - Oriented to time and family members disoriented to place, - - Arousable but drifts back to sleep. Has sleep apnea snoring moaning or jerking movements while sleeping HEENT: PERRLA, EOMI Oral: Dry Mucosa Neck: Supple, No JVD Lungs: Rales - Right middle lobe, Wheezes Cardiovascular: Regular rate, Murmur, No rub noted Abdomen: Bowel Sounds Present - Mental lobe, Soft, Non Tender, Non-Distended, Obese Extremities: No edema, Peripheral Pulses Normal Skin: No rashes Musculoskeletal: Muscle Wasting, - - Generalized weakness, rheumatoid changes in his digits Neurological: - Psych/Mental Status: - - Somnolent Vital Signs Temp Pulse Resp BP Pulse Ox 98.1 F 79 20 108/61 94 01/20/17 14:20 01/20/17 14:20 01/20/17 14:20 01/20/17 14:20 01/20/17 14:20 Oxygen Flow Rate 2 Oxygen Delivery Method Nasal Cannula Weight: 100 kg Body Mass Index (BMI) 33.7 Intake and Output for Last 24 Hours 01/18/17 01/19/17 01/20/17 23:59 23:59 23:59 Intake Total 1385 293 Output Total 400 Balance 1385 -107 Laboratory Tests Past 24 Hrs 01/19/17 01/20/17 01/20/17 22:10 02:35 02:35 WBC 7.0 RBC 2.75 L Hgb 9.1 L Hct 28.4 L MCV 103.3 H MCH 33.1 H MCHC 32.0 RDW 18.4 H RDW Differential 67.6 H Plt Count 165 MPV 9.6 Neut % (Auto) Not Reportable Absolute Neuts (auto) 6.8 Absolute Lymphs (auto) 0.07 L Total Counted 100 Neutrophils % (Manual) 96 H Band Neutrophils % 1 Lymphocytes % (Manual) 1 L Monocytes % (Manual) 1 Myelocytes % 1 H Diff Path Review Reviewed Hypersegmented Neuts RARE H Platelet Estimate ADEQUATE RBC Morphology NORM C+C Anisocytosis 2+ Sodium 137 Potassium 4.0 Chloride 104 Carbon Dioxide 26.0 Anion Gap 7 BUN 59 H Creatinine 1.93 H Estim Creat Clear Calc 31.01 Est GFR (MDRD) Af Amer 44 L Est GFR (MDRD) Non-Af 36 L BUN/Creatinine Ratio 30.6 H Glucose 130 H Calcium 9.0 Troponin I < 0.02 U Random Total Protein Ur Random Sodium Urine Creatinine 01/20/17 01/20/17 01/20/17 02:35 06:20 11:15 WBC RBC Hgb Hct MCV MCH MCHC RDW RDW Differential Plt Count MPV Neut % (Auto) Absolute Neuts (auto) Absolute Lymphs (auto) Total Counted Neutrophils % (Manual) Band Neutrophils % Lymphocytes % (Manual) Monocytes % (Manual) Myelocytes % Diff Path Review Hypersegmented Neuts Platelet Estimate RBC Morphology Anisocytosis Sodium Potassium Chloride Carbon Dioxide Anion Gap BUN Creatinine Estim Creat Clear Calc Est GFR (MDRD) Af Amer Est GFR (MDRD) Non-Af BUN/Creatinine Ratio Glucose Calcium Troponin I < 0.02 < 0.02 U Random Total Protein Ur Random Sodium 21 Urine Creatinine 01/20/17 01/20/1717 11:15 11:15 12:35 WBC RBC Hgb Hct MCV MCH MCHC RDW RDW Differential Plt Count MPV Neut % (Auto) Absolute Neuts (auto) Absolute Lymphs (auto) Total Counted Neutrophils % (Manual) Band Neutrophils % Lymphocytes % (Manual) Monocytes % (Manual) Myelocytes % Diff Path Review Hypersegmented Neuts Platelet Estimate RBC Morphology Anisocytosis Sodium Potassium Chloride Carbon Dioxide Anion Gap BUN Creatinine Estim Creat Clear Calc Est GFR (MDRD) Af Amer Est GFR (MDRD) Non-Af BUN/Creatinine Ratio Glucose Calcium Troponin I < 0.02 U Random Total Protein 18.0 H Ur Random Sodium Urine Creatinine 127.00 POC Glucose 01/20/17 01/20/17 01/19/17 11:01 06:45 20:46 POC Glucose 101 106 194 H 01/19/17 18:10 POC Glucose 102 Clinical Impression(s) from Imaging Studies Chest X-Ray 01/20/17 05:55 IMPRESSION: Bibasilar atelectasis. Electronically Signed: Sumeet Christianson DO at 11:58 EDT Tel [phone], Service support , Renal Ultrasound 01/20/17 05:55 IMPRESSION: 1. Increased echogenicity with central sinus fat. 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 2. Bilateral renal cysts. Electronically Signed: Sumeet Christianson DO at 11:57 EDT Tel [phone], Service support , Assessment/Plan Active and Suspected Problems DENZEL (acute kidney injury) (Acute) FTT (failure to thrive) in adult (Acute) Hypoxia (Acute) 1. DENZEL clearly due to prerenal azotemia, dehydration, diuretic therapy. No NSAID use history. FENA <1%. Baseline creatinine 1.03 in July 2016, 1.27 in September 2016. Creatinine was up to 1.86 December 09, 2.04 December 30, 2.45 January 19 from [facility]. Creatinine was 2.55 on admission improved to 1.9 after his diuretics were held. Received IV fluids and stress dose steroids for hypotension. He appears dry on exam. We will gently hydrate with normal saline at 50 cc/hr. continue to hold diuretics. We will see if his altered mental status and his appetite improves as his renal function improves. Discussed with family at bedside. 2. History of rheumatoid arthritis on chronic steroid therapy. Would hold methotrexate until renal function back to baseline creatinine 1.0 3. History of bronchiectasis followed by pulmonary at [facility] 4. History of pulmonary embolus on Xarelto at home. Currently on heparin subcu due to DENZEL. 5. Hypotension resolved
--- NOTE | 2017-01-20 15:49 | CASEMGMT ---
CHARLIE CM faxed hospice referral to [facility]. Gaby Cain RN, BSN, CM
[2017-01-20 16:51] LABS: Bedside Glucose 103 mg/dL (70-110)
[2017-01-20] MEDS: 0.9% Normal Saline 1,000 ML 50 ML IV (17:53)
[2017-01-20] MEDS: Pramipexole Di-HCl 0.25 MG Tablet PO (21:07)
[2017-01-20] MEDS: Docusate Sodium 100 MG Capsule PO (21:07)
[2017-01-20] MEDS: Atorvastatin Calcium 20 MG Tablet PO (21:07)
[2017-01-20 21:16] LABS: Bedside Glucose 131 mg/dL (70-110)
--- NOTE | 2017-01-20 21:55 | PCM.HOSP.N ---
Hospitalist Note Earlier today patient has some respiratory distress discussed with respiratory therapist attempted to get an ABG but could not draw attempted some mask ventilation but he did not tolerate I visited the patient and family in the room he had expressed that he does not want any aggressive treatment done He does no want to be intubated His CODE STATUS is now changed to DNR CC arrest
[2017-01-21] VITALS (8 sets, daily range): BP systolic 98–126; BP diastolic 50–60; PULSE 85–97; RESP 18–36; TEMP 36.3–36.8; O2SAT 93–98
[2017-01-21] MEDS: Ipratropium/Albuterol Sulfate 3 ML AMPUL.NEB INHALATION (06:07)
[2017-01-21] MEDS: Heparin Injection 5,000 UNITS/ML Syringe 5000 UNITS SC (06:14)
[2017-01-21 06:56] LABS: Bedside Glucose 100 mg/dL (70-110)
[2017-01-21 07:20] LABS: Absolute Lymphocyte Count 0.36 X10^3/ul (0.83-4.51); Absolute Neutrophil Count 5.8 X10^3/uL (2.0-7.7); Basophil# 0.01 X10^3/uL; Basophil% 0.2 % (0-1); Eosinophil# 0.22 X10^3/uL; Eosinophils% 3.4 % (0-5); Hematocrit 28.4 % (40-54); Lymphocyte # 0.36 X10^3/ul (4.0); Lymphocyte % 5.5 % (19-41); Mean Corp Hgb Conc 31.7 g/gl (32-36); Mean Corpuscular Hgb 33.2 pg (27.0-32.0); Mean Corpuscular Volume 104.8 fL (80-94); Mean Platelet Vol. 9.7 fl (6.2-12.0); Monocyte# 0.01 X10^3/uL; Monocyte% 0.2 % (0-10); Neutrophil % 89.3 % (47-70); Platelet Count 152 K/mm3 (150-450); RBC Distribution Width CV 18.5 % (11.6-14.6); RBC Distribution Width SD 69.8 fl (35.1-43.9); Red Blood Count 2.71 M/mm3 (4.6-6.2); White Blood Count 6.5 K/mm3 (4.4-11.0)
[2017-01-21 07:25] LABS: Differential Indicated SCAN CRITERIA MET; POSITIVE COUNT NO; POSITIVE DIFFERENTIAL YES; POSITIVE MORPHOLOGY YES
[2017-01-21 07:29] LABS: Anion Gap 8 (5-15); BUN 36 mg/dL (7-18); BUN/Creat Ratio 28.1 RATIO (10-20); Calcium,Total 9.1 mg/dL (8.5-10.1); Chloride 107 mmol/L (98-107); Creatinine, Serum 1.28 mg/dL (0.70-1.30); EST Glomerular Filtration Rate 58 mL/min (>60); Est Glom Filt Rate - Afr Amer 70 mL/min (>60); Estimated Creatinine Clearance 46.76 ml/min; Glucose 99 mg/dL (70-110); Potassium 3.8 mmol/L (3.5-5.1); Sodium Level 137 mmol/L (136-145)
[2017-01-21 07:58] LABS: Anisocytosis 1+
--- NOTE | 2017-01-21 08:44 | PCM.PN.REN ---
Patient Problems: Active and Suspected Problems DENZEL (acute kidney injury) (Acute) FTT (failure to thrive) in adult (Acute) Hypoxia (Acute) Subjective: Renal function improved with IV fluids with creatinine 1.2. Remains agitated and wants to be left alone. He is not eating. Family at bedside. He is somnolent but arousable. Has chronic shortness of breath and cough from bronchiectasis. - Physical Exam General: Oriented x3, - - Somnolent but arousable, responding appropriately to questions Oral: Dry Mucosa Neck: Supple - Mouth breather Lungs: Rales - Right lung base anteriorly, Wheezes Cardiovascular: Regular rate Abdomen: Bowel Sounds Present, Soft, Non Tender, Distended, Obese Extremities: No edema Musculoskeletal: No Muscle Wasting Psych/Mental Status: Agitated Vital Signs Temp Pulse Resp BP Pulse Ox 98.3 F 89 32 126/50 93 01/21/17 08:18 01/21/17 08:18 01/21/17 08:18 01/21/17 08:18 01/21/17 08:18 Oxygen Flow Rate 3 Oxygen Delivery Method Nasal Cannula Weight: 100.1 kg Body Mass Index (BMI) 33.7 Intake and Output for Last 24 Hours 01/19/17 01/20/17 01/21/17 23:59 23:59 23:59 Intake Total 1385 1122 359 Output Total 500 100 Balance 1385 622 259 Laboratory Tests Past 24 Hrs 01/20/17 01/20/17 01/20/17 02:35 11:15 11:15 WBC RBC Hgb Hct MCV MCH MCHC RDW RDW Differential Plt Count MPV Immature Gran % (Auto) Neut % (Auto) Lymph % (Auto) [place] % (Auto) Eos % (Auto) Baso % (Auto) Absolute Neuts (auto) Absolute Lymphs (auto) Total Counted Diff Path Review Reviewed Anisocytosis Sodium Potassium Chloride Carbon Dioxide Anion Gap BUN Creatinine Estim Creat Clear Calc Est GFR (MDRD) Af Amer Est GFR (MDRD) Non-Af BUN/Creatinine Ratio Glucose Calcium Troponin I U Random Total Protein 18.0 H Ur Random Sodium 21 Urine Creatinine 01/20/17 01/20/17 01/21/17 11:15 12:35 06:45 WBC 6.5 RBC 2.71 L Hgb 9.0 L Hct 28.4 L MCV 104.8 H MCH 33.2 H MCHC 31.7 L RDW 18.5 H RDW Differential 69.8 H Plt Count 152 MPV 9.7 Immature Gran % (Auto) 1.400 H Neut % (Auto) 89.3 H Lymph % (Auto) 5.5 L [place] % (Auto) 0.2 Eos % (Auto) 3.4 Baso % (Auto) 0.2 Absolute Neuts (auto) 5.8 Absolute Lymphs (auto) 0.36 L Total Counted Not Reportable Diff Path Review Anisocytosis 1+ Sodium Potassium Chloride Carbon Dioxide Anion Gap BUN Creatinine Estim Creat Clear Calc Est GFR (MDRD) Af Amer Est GFR (MDRD) Non-Af BUN/Creatinine Ratio Glucose Calcium Troponin I < 0.02 U Random Total Protein Ur Random Sodium Urine Creatinine 127.00 01/21/17 06:45 WBC RBC Hgb Hct MCV MCH MCHC RDW RDW Differential Plt Count MPV Immature Gran % (Auto) Neut % (Auto) Lymph % (Auto) [place] % (Auto) Eos % (Auto) Baso % (Auto) Absolute Neuts (auto) Absolute Lymphs (auto) Total Counted Diff Path Review Anisocytosis Sodium 137 Potassium 3.8 Chloride 107 Carbon Dioxide 22.0 Anion Gap 8 BUN 36 H Creatinine 1.28 Estim Creat Clear Calc 46.76 Est GFR (MDRD) Af Amer 70 Est GFR (MDRD) Non-Af 58 L BUN/Creatinine Ratio 28.1 H Glucose 99 Calcium 9.1 Troponin I U Random Total Protein Ur Random Sodium Urine Creatinine POC Glucose 01/21/17 01/20/17 01/20/17 06:51 21:05 16:46 POC Glucose 100 131 H 103 01/20/17 11:01 POC Glucose 101 Clinical Impression(s) from Imaging Studies Chest X-Ray 01/20/17 05:55 IMPRESSION: Bibasilar atelectasis. Electronically Signed: Sumeet Christianson DO at 11:58 EDT Tel [phone], Service support , Renal Ultrasound 01/20/17 05:55 IMPRESSION: 1. Increased echogenicity with central sinus fat. 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 2. Bilateral renal cysts. Electronically Signed: Sumeet Christianson DO at 11:57 EDT Tel [phone], Service support , Assessment/Plan Active and Suspected Problems DENZEL (acute kidney injury) (Acute) FTT (failure to thrive) in adult (Acute) Hypoxia (Acute) 1. DENZEL due to prerenal azotemia, dehydration, diuretic therapy. Renal function improved with creatinine 1.2 today with gentle hydration. Baseline creatinine 1.03 in July 2016, 1.27 in September 2016. Creatinine was up to 1.86 December 09, 2.04 December 30, 2.45 January 19 from [facility]. He did have a CT with iv contrast on 12/26 but renal fxn was already declining in November while on diuretics. He continues to refuse eating. Wants to be left alone to sleep. Discussed with family at bedside about palliative, hospice if he refuses to follow medical recommendations. 2. History of rheumatoid arthritis on chronic steroid therapy. 3. History of bronchiectasis followed by pulmonary at [facility] 4. History of pulmonary embolus on Xarelto at home. 5. Hypotension resolved
[2017-01-21] MEDS: Pramipexole Di-HCl 0.25 MG Tablet PO (08:50)
[2017-01-21] MEDS: Docusate Sodium 100 MG Capsule PO (08:50)
[2017-01-21] MEDS: Citalopram 20 MG Tablet PO (08:50)
--- NOTE | 2017-01-21 08:51 | PN.RENAL_ITS ---
Patient Problems: Active and Suspected Problems DENZEL (acute kidney injury) (Acute) FTT (failure to thrive) in adult (Acute) Hypoxia (Acute) Subjective: Renal function improved with IV fluids with creatinine 1.2. Remains agitated and wants to be left alone. He is not eating. Family at bedside. He is somnolent but arousable. Has chronic shortness of breath and cough from bronchiectasis. - Physical Exam General: Oriented x3, - - Somnolent but arousable, responding appropriately to questions Oral: Dry Mucosa Neck: Supple - Mouth breather Lungs: Rales - Right lung base anteriorly, Wheezes Cardiovascular: Regular rate Abdomen: Bowel Sounds Present, Soft, Non Tender, Distended, Obese Extremities: No edema Musculoskeletal: No Muscle Wasting Psych/Mental Status: Agitated Vital Signs Temp Pulse Resp BP Pulse Ox 98.3 F 89 32 126/50 93 01/21/17 08:18 01/21/17 08:18 01/21/17 08:18 01/21/17 08:18 01/21/17 08:18 Oxygen Flow Rate 3 Oxygen Delivery Method Nasal Cannula Weight: 100.1 kg Body Mass Index (BMI) 33.7 Intake and Output for Last 24 Hours 01/19/17 01/20/17 01/21/17 23:59 23:59 23:59 Intake Total 1385 1122 359 Output Total 500 100 Balance 1385 622 259 Laboratory Tests Past 24 Hrs 01/20/17 01/20/17 01/20/17 02:35 11:15 11:15 WBC RBC Hgb Hct MCV MCH MCHC RDW RDW Differential Plt Count MPV Immature Gran % (Auto) Neut % (Auto) Lymph % (Auto) [place] % (Auto) Eos % (Auto) Baso % (Auto) Absolute Neuts (auto) Absolute Lymphs (auto) Total Counted Diff Path Review Reviewed Anisocytosis Sodium Potassium Chloride Carbon Dioxide Anion Gap BUN Creatinine Estim Creat Clear Calc Est GFR (MDRD) Af Amer Est GFR (MDRD) Non-Af BUN/Creatinine Ratio Glucose Calcium Troponin I U Random Total Protein 18.0 H Ur Random Sodium 21 Urine Creatinine 01/20/17 01/20/17 01/21/17 11:15 12:35 06:45 WBC 6.5 RBC 2.71 L Hgb 9.0 L Hct 28.4 L MCV 104.8 H MCH 33.2 H MCHC 31.7 L RDW 18.5 H RDW Differential 69.8 H Plt Count 152 MPV 9.7 Immature Gran % (Auto) 1.400 H Neut % (Auto) 89.3 H Lymph % (Auto) 5.5 L [place] % (Auto) 0.2 Eos % (Auto) 3.4 Baso % (Auto) 0.2 Absolute Neuts (auto) 5.8 Absolute Lymphs (auto) 0.36 L Total Counted Not Reportable Diff Path Review Anisocytosis 1+ Sodium Potassium Chloride Carbon Dioxide Anion Gap BUN Creatinine Estim Creat Clear Calc Est GFR (MDRD) Af Amer Est GFR (MDRD) Non-Af BUN/Creatinine Ratio Glucose Calcium Troponin I < 0.02 U Random Total Protein Ur Random Sodium Urine Creatinine 127.00 01/21/17 06:45 WBC RBC Hgb Hct MCV MCH MCHC RDW RDW Differential Plt Count MPV Immature Gran % (Auto) Neut % (Auto) Lymph % (Auto) [place] % (Auto) Eos % (Auto) Baso % (Auto) Absolute Neuts (auto) Absolute Lymphs (auto) Total Counted Diff Path Review Anisocytosis Sodium 137 Potassium 3.8 Chloride 107 Carbon Dioxide 22.0 Anion Gap 8 BUN 36 H Creatinine 1.28 Estim Creat Clear Calc 46.76 Est GFR (MDRD) Af Amer 70 Est GFR (MDRD) Non-Af 58 L BUN/Creatinine Ratio 28.1 H Glucose 99 Calcium 9.1 Troponin I U Random Total Protein Ur Random Sodium Urine Creatinine POC Glucose 01/21/17 01/20/17 01/20/17 06:51 21:05 16:46 POC Glucose 100 131 H 103 01/20/17 11:01 POC Glucose 101 Clinical Impression(s) from Imaging Studies Chest X-Ray 01/20/17 05:55 IMPRESSION: Bibasilar atelectasis. Electronically Signed: Sumeet Christianson DO at 11:58 EDT Tel [phone], Service support , Renal Ultrasound 01/20/17 05:55 IMPRESSION: 1. Increased echogenicity with central sinus fat. 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 2. Bilateral renal cysts. Electronically Signed: Sumeet Christianson DO at 11:57 EDT Tel [phone], Service support , Assessment/Plan Active and Suspected Problems DENZEL (acute kidney injury) (Acute) FTT (failure to thrive) in adult (Acute) Hypoxia (Acute) 1. DENZEL due to prerenal azotemia, dehydration, diuretic therapy. Renal function improved with creatinine 1.2 today with gentle hydration. Baseline creatinine 1.03 in July 2016, 1.27 in September 2016. Creatinine was up to 1.86 December 09, 2.04 December 30, 2.45 January 19 from [facility]. He did have a CT with iv contrast on 12/26 but renal fxn was already declining in November while on diuretics. He continues to refuse eating. Wants to be left alone to sleep. Discussed with family at bedside about palliative, hospice if he refuses to follow medical recommendations. 2. History of rheumatoid arthritis on chronic steroid therapy. 3. History of bronchiectasis followed by pulmonary at [facility] 4. History of pulmonary embolus on Xarelto at home. 5. Hypotension resolved
--- NOTE | 2017-01-21 11:30 | CASEMGMT ---
[facility] here to meet with family. MERLYN spoke with Fredi from hospice who states pt has signed up for hospice care and will be evaluated for inpatient hospice unit. If pt does not qualify for inpatient unit, pt will be pursue [facility] placement. Fredi reports pt is agreeable to hospice care. SOO Johnson
[2017-01-21] MEDS: 0.9% Normal Saline 1,000 ML 50 ML IV (12:10)
--- NOTE | 2017-01-21 12:28 | NURSING ---
Report called to Parris at [facility] inpatient unit.
[2017-01-21 12:55] LABS: Bedside Glucose 111 mg/dL (70-110)
--- NOTE | 2017-01-21 13:54 | DS.PCM_ITS ---
Discharge Date and Diagnosis Date of Admission: 01/19/17 Date of Discharge: 01/21/17 - Primary Discharge Diagnosis DENZEL Hypotension Severe protein malnutrition with weight loss Worsening of chronic debility Bronchiectasis Pressure Injuries present on admission Hx Of PE RA Noncompliance with medical care - Secondary Discharge Diagnosis Chronic Problems Anxiety (Chronic) Arrhythmia (Chronic) unsure of type, takes diltiazem B12 deficiency (Chronic) COPD (chronic obstructive pulmonary disease) (Chronic) Chronic anemia (Chronic) Depression (Chronic) Diabetes type 2, controlled (Chronic) History of pulmonary embolus (PE) (Chronic) Hyperlipidemia (Chronic) Hypertension (Chronic) Interstitial pulmonary fibrosis (Chronic) RACHEL (obstructive sleep apnea) (Chronic) Restless leg syndrome (Chronic) Rheumatoid arthritis (Chronic) 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 Renal ultrasound-increased echogenicity with central sinus fat, bilateral renal cysts. Consultations 01/19/17 18:39 Consult: Onc/Wound/smart energy specialist Routine Comment: Operations: None Procedures: None Summary of Care Provided: Physical exam on day of discharge: General: Mentation is waxing and waning. He is restless, he has poor muscle tone Psych: Lethargic, agitated HEENT: [place] AT NC Neck: Supple NT CV: RRR no m/t/r/g/h Resp: Diffuse rales and wheezing Abd: [id number] Soft NT no guarding or rigidity Ext: DP2+= no edema Skin: W/D normal turgor Lymph/Heme: No active bleeding or adenopathy Neuro: CN2-12 intact Hospital Course: The patient is a 76 year old M who presented to the emergency room with increased shortness of breath, confusion, progressive debility and weakness. Patient has had generalized weakness and difficulty with ambulation for about a year and has been significantly worsening. He was not taking his medications at home, he has pressure wounds that are not healing on his buttocks,not eating or drinking at home, and he had been losing weight at home. His had been his primary caregiver but she has been unable to care for him recently, primarily because the patient has been becoming increasingly agitated and noncompliant with his recommended therapies. The patient has bronchiectasis and was recently treated with a course of Cipro prior to admission. He has significant increase in his creatinine in the ER and was admitted for DENZEL, hypotension, severe protein malnutrition, and worsening of chronic debility. He was treated primarily with IV fluids and as needed breathing treatments. The patient continued to refuse all his medications, refused to eat, refused to work with therapy. After long discussion with the patient, his , and his daughter is agreed upon that hospice would be the next appropriate step as he did not desire any further treatment. Hospice was consulted and the family and patient agreed to inpatient hospice at this time. His renal function did significantly improve with IV hydration. He remained in stable condition is with discharged to inpatient hospice. [] Discharge Diet: No Restrictions Discharge Activity: Return to Normal Activity, - - Activity as per hospice. Home Medications: Medications to take at Discharge Atenolol [Tenormin] 25 mg PO DAILY 12/05/16 BusPIRone [Buspar] 15 mg PO BID 12/05/16 Calcium Carb/Magnesium Hydrox [Rolaids Chewable Tablet] 1 tab PO DAILY 12/05/16 Citalopram [Celexa] 20 mg PO DAILY 12/05/16 Diltiazem HCl [Diltiazem 24Hr ER] 120 mg PO DAILY 12/05/16 Docusate Sodium [Colace] 100 mg PO BID 12/05/16 Fluticasone 0.05% [Flonase Nasal [place]] 1 spray IH DAILY 12/05/16 Methotrexate 17.5 mg PO PERALTA 12/05/16 Mometasone/Formoterol [Dulera 200 Mcg/5 Mcg Inhaler] 2 puff IH BID 12/05/16 Pramipexole Di-HCl [Mirapex] 0.25 mg PO BID 12/05/16 PredniSONE 20 mg PO DAILY 12/05/16 Rivaroxaban [Xarelto] 20 mg PO DAILY 12/05/16 Simvastatin [Zocor] 40 mg PO QHS 12/05/16 TraMADol [Ultram] 50 mg PO BID PRN 12/05/16 Vit B12/Levomefolate/Vit B6/B2 [l-Methyl-Mc Tablet] 1 each PO DAILY 12/05/16 Folic Acid 1 mg PO DAILY@0800 01/19/17 Niacin 500 mg PO DAILY 01/19/17 Acetaminophen [Tylenol Tablet] 650 mg PO Q6H PRN PRN tablet 01/21/17 Albuterol Aerosols [Ventolin Aerosols] 2.5 mg INHALATION Q2H PRN PRN 01/21/17 Ipratropium/Albuterol Sulfate [Duoneb] 3 ml INHALATION Q4H.RT 01/21/17 Ondansetron [Zofran] 4 mg IV Q8H PRN PRN vial 01/21/17 Primary Care Physician: Kain Vargas MD [Primary Care Provider] - Please follow up with your Primary Care Physician in: 4 weeks Disposition: Hospice Medical Facility Minutes spent on discharge:: 35 Patient Condition:: Stable Meaningful Use Info Meaningful Use Diagnoses (Choose all that apply): None applicable
== END 2017-01-21 13:32 | disposition hospice, inpatient (51) | DRG 684 ==
PROVIDERS: Internal Medicine Nephrology; Nurse Practitioner Family; Physician Assistant; Admitting Provider Internal Medicine; Emergency Provider Emergency Medicine; Family Provider Family Medicine; PCP Family Medicine; Visit Provider Internal Medicine
DX: N17.9 Acute kidney failure, unspecified (principal); L89.152 Pressure ulcer of sacral region, stage 2; L89.312 Pressure ulcer of right buttock, stage 2; I95.9 Hypotension, unspecified; L89.322 Pressure ulcer of left buttock, stage 2; Z99.81 Dependence on supplemental oxygen; D64.9 Anemia, unspecified; R62.7 Adult failure to thrive; R09.02 Hypoxemia; M06.9 Rheumatoid arthritis, unspecified; Z79.52 Long term (current) use of systemic steroids; Z87.891 Personal history of nicotine dependence; J47.9 Bronchiectasis, uncomplicated; E78.5 Hyperlipidemia, unspecified; G25.81 Restless legs syndrome; Z86.711 Personal history of pulmonary embolism; Z79.02 Long term (current) use of antithrombotics/antiplatelets; F32.9 Major depressive disorder, single episode, unspecified; F41.9 Anxiety disorder, unspecified; Z66 Do not resuscitate; Z51.5 Encounter for palliative care; Z91.19 Patient's noncompliance with other medical treatment and regimen; Z68.33 Body mass index [BMI] 33.0-33.9, adult; E53.8 Deficiency of other specified B group vitamins; G47.33 Obstructive sleep apnea (adult) (pediatric); I49.9 Cardiac arrhythmia, unspecified; I10 Essential (primary) hypertension; Z79.899 Other long term (current) drug therapy
CPT/HCPCS: 36415; 71010; 71020; 76770; 80048; 80053; 81001; 82570; 82962; 83605; 83880; 84156; 84300; 84484; 85025; 87086; 93005; 94640; 94667; 97161; 97166; 97802; 99285; J7030; J7040; P9612; A4216